=== PATIENT | female | born 1990 | race Caucasian/White ===

== ENCOUNTER 2021-02-13 15:17 | Emergency (ER) | payer OTHER, SELFPAY ==
[2021-02-13 15:26] VITALS: BP 121/73; PULSE 97; RESP 20; TEMP 37.1; O2SAT 100
--- NOTE | 2021-02-13 16:37 | DI.RAD.S_ITS ---
PROCEDURE: XR LUMBAR SPINE 2-3V INDICATIONS: back pain after yard work TECHNIQUE: 3 views of the lumbar spine were acquired. COMPARISON: None. FINDINGS: Bones: 5 [id number] vertebrae are present. No vertebral body compression fractures. No suspicious bony lesions. Mild dextroconvex scoliotic curvature is seen. Mild disc space narrowing is seen at L5-S1. The disc heights otherwise appear well-preserved. Soft tissues: Overlying bowel gas pattern is normal. No suspicious soft tissue calcifications. An IUD is seen at its expected location. IMPRESSION: Mild focal L5-S1 disc space narrowing. Mild dextroconvex scoliotic curvature. Dictated by: Glen Lagunas M.D. on 02/13/2021 at 16:25 Approved by: Glen Lagunas M.D. on 02/13/2021 at 16:26
== END 2021-02-13 20:20 | disposition left against medical advice (07) ==
PROVIDERS: Emergency Provider Emergency Medicine
DX: M54.9 Dorsalgia, unspecified (principal)
CPT/HCPCS: 72100; 99283

== ENCOUNTER 2023-12-08 23:08 | Emergency (ER) | payer OTHER, SELFPAY ==
[2023-12-08 23:13] VITALS: PULSE 109; O2SAT 100
--- NOTE | 2023-12-08 23:14 | DI.RAD.S_ITS ---
PROCEDURE: XR CHEST 1V INDICATIONS: chest pain TECHNIQUE: One view of the chest was acquired. COMPARISON: None. FINDINGS: Surgical changes and devices: None. Lungs and pleura: Lungs are clear. No pleural effusions or pneumothorax. Mediastinum: Mediastinal contours appear normal. Heart size is normal. Bones and chest wall: No suspicious bony lesions. Overlying soft tissues appear unremarkable. IMPRESSION: No acute cardiopulmonary abnormality is seen. Dictated by: Hong Chowdhury M.D. on 12/09/2023 at 0:17 Approved by: Hong Chowdhury M.D. on 12/09/2023 at 0:17
[2023-12-08 23:15] VITALS: BP 164/105; PULSE 106; RESP 20; TEMP 37; O2SAT 98; BMI 34.3
[2023-12-08 23:30] VITALS: PULSE 89; RESP 13
[2023-12-08 23:38] VITALS: BP 139/83; PULSE 85; RESP 19
[2023-12-09] VITALS: BP 146/70; PULSE 84; RESP 16; O2SAT 96
--- NOTE | 2023-12-09 00:01 | ED.CHESTPAIN ---
HPI - Chest Pain General Chief Complaint: Chest Pain Stated Complaint: chest pain Time Seen by Provider: 12/08/23 23:14 Source: patient Mode of arrival: Ambulatory Limitations: no limitations History of Present Illness HPI narrative: Patient is a 33-year-old female who is here for evaluation central chest pressure and epigastric abdominal pain. States the symptoms been going on for the past 24 hours or so. She also reports she was getting some shortness of breath when she is up around. Pain is not necessarily worse with coughing. Worse with palpation or movement. Has never had symptoms like this in the past. No worse with the eating. Has not tried anything for the symptoms prior to denies fevers. Father had heart attack when he was 55. No change in bowel habits or urinary symptoms. Related Data Allergies Allergy/AdvReac Type Severity Reaction Status Date / Time No Known Drug Allergies Allergy Verified 12/08/23 23:15 Review of Systems Review of Systems Narrative: See HPI Patient History Social History Smoking Status: Current every day smoker Smoking Status: Current every day smoker tobacco type: vaping alcohol intake frequency: a few times a week Substance Use Type: does not use Exam Initial Vital Signs Initial Vital Signs: Vital Signs Pulse Rate 109 H 12/08/23 23:13 Pulse Oximetry 100 12/08/23 23:13 Const General: cooperative, comfortable and No ill appearing HENMI Head: normal to inspection and normocephalic Resp Effort & Inspection: normal respiratory effort Auscultation: clear to auscultation bilaterally Cardio Rate: regular rate Rhythm: regular rhythm GI Inspection: normal to inspection and non-distended Skin General: no rashes or lesions noted Neuro General: patient alert, patient awake and moves all extremities Extrem General: normal to inspection and capillary refill normal Course Orders Ordered: ED Orders 12/08/23 23:14 XR chest 1V Stat EKG-12 Lead Stat 12/09/23 00:01 Complete Blood Count AUTO DIFF Stat Comprehensive Metabolic Panel Stat Lipase Stat Troponin & CK Cardiac Panel Stat Vital Signs Vital signs: Vital Signs - 8 hr 12/08/23 23:13 12/08/23 23:15 12/08/23 23:30 Temperature 98.6 F Pulse Rate 109 H 106 H 89 Respiratory Rate 20 13 Blood Pressure 164/105 H Pulse Oximetry 100 98 Oxygen Delivery Method Room Air 12/08/23 23:38 12/08/23 23:38 12/09/23 00:00 Temperature Pulse Rate 85 84 Respiratory Rate 19 16 Blood Pressure 139/83 Pulse Oximetry 96 Oxygen Delivery Method 12/09/23 00:00 12/09/23 00:30 12/09/23 00:30 Temperature Pulse Rate 73 Respiratory Rate 12 Blood Pressure 146/70 H 129/81 Pulse Oximetry 97 Oxygen Delivery Method MDM - Chest Pain Lab Data Attestation: I reviewed the patient's lab results. 12/08/23 23:35 12/08/23 23:35 Labs: Lab Results 12/08/23 Range/Units 23:35 WBC 8.8 (4.5-11.0) X10^3/uL RBC 4.69 (4.0-5.2) X10^6/uL Hgb 14.4 (12.0-16.0) g/dL Hct 42.4 (36-46) % MCV 90.3 (80-100) fL MCH 30.7 (26-34) PG MCHC 34.0 (30-36) % RDW 12.9 (11.6-14.8) % Plt Count 344 (150-400) X10^3/uL Neut % (Auto) 57.0 (50-75) % Lymph % (Auto) 33.9 (25-40) % [place] % (Auto) 6.4 (3-14) % Eos % (Auto) 2.2 (2-4) % Baso % (Auto) 0.5 (0-2) % Neut # (Auto) 5000 (2673-4039) /uL Lymph # (Auto) 3000 (0740-5527) /uL [place] # (Auto) 600 (0-900) /uL Eos # (Auto) 200 (0-450) /uL Baso # (Auto) 0 (0-100) /uL Sodium 134 L (137-145) mmol/L Potassium 3.9 (3.4-5.1) mmol/L Chloride 101 (98-107) mmol/L Carbon Dioxide 23 (22-32) mmol/L BUN 17 (7-17) mg/dL Creatinine 0.61 (0.52-1.04) mg/dL Estimated GFR > 60 (>60) mL/min BUN/Creatinine Ratio 27.9 H (6-22) Glucose 85 (70-100) mg/dL Calcium 9.4 (8.4-10.2) mg/dL Total Bilirubin 1.0 (0.2-1.3) mg/dL AST 84 H (14-36) IU/L ALT 82 H (<35) IU/L Alkaline Phosphatase 76 (38-126) U/L Total Creatine Kinase 80 (30-135) U/L Troponin I < 0.012 (0.01-0.034) ng/mL Total Protein 8.1 (6.3-8.2) g/dL Albumin 4.6 (3.5-5.0) g/dL Globulin 3.5 (1.7-4.1) g/dL Albumin/Globulin Ratio 1.3 (1.0-2.8) Lipase 108 (23-300) U/L Imaging Data Chest x-ray: Radiologist's Impression: PROCEDURE: XR CHEST 1V INDICATIONS: chest pain TECHNIQUE: One view of the chest was acquired. COMPARISON: None. FINDINGS: Surgical changes and devices: None. Lungs and pleura: Lungs are clear. No pleural effusions or pneumothorax. Mediastinum: Mediastinal contours appear normal. Heart size is normal. Bones and chest wall: No suspicious bony lesions. Overlying soft tissues appear unremarkable. IMPRESSION: No acute cardiopulmonary abnormality is seen. ECG Data Attestation: I personally reviewed and interpreted this ECG as follows: Interpretation: Sinus rhythm Ventricular rate 87 Normal [place] Normal QRS Normal QTC Artifact noted V4 V5 V6 No ST T wave changes MDM Narrative Medical decision making narrative: Patient is low risk per the revised [place] score for pulmonary embolism. Low risk for ACS. Nonischemic EKG. Negative troponin greater than 24 hours after the onset of symptoms. Chest x-ray shows no signs of pneumonia. LFTs and lipase unremarkable. Low suspicion for gallbladder pathology. I discussed all this with the patient. Despite her father having heart attack the age of 55 she still remains low risk. We did discuss the lack of a definitive etiology. Will have her try a antacid see if this helps her discomfort. Also advised she contact her primary care doctor for follow-up. She expressed understanding and agreement. She was given return precautions. Discharge Plan Departure Patient Disposition: Home Clinical Impression: Atypical chest pain Instructions: DI for Atypical Chest Pain Activity Restrictions/Additional Instructions: I do recommend that you consider taking a antacid to see if this helps the discomfort that you were having. Continue all of your medications as directed. Return to the emergency department for new or worsening symptoms. Contact your primary care doctor for follow-up. Referrals: Provider,Em AGUIRRE [Primary Care Provider] - Stand Alone Forms: Patient Portal/API
[2023-12-09 00:13] LABS: Add Manual Diff / Slide Review NO; Basophils Absolute Auto 0 /uL (0-100); Basophils Percent Auto 0.5 % (0-2); Eosinophils Absolute Auto 200 /uL (0-450); Eosinophils Percent Auto 2.2 % (2-4); Hematocrit 42.4 % (36-46); Hemoglobin 14.4 g/dL (12.0-16.0); Lymphocytes Absolute Auto 3000 /uL (1100-4500); Lymphocytes Percent Auto 33.9 % (25-40); Mean Corpuscular Hemoglobin 30.7 PG (26-34); Mean Corpuscular Volume 90.3 fL (80-100); Monocytes Absolute Auto 600 /uL (0-900); Monocytes Percent Auto 6.4 % (3-14); Neutrophils Absolute Auto 5000 /uL (1500-7000); Platelet Count 344 X10^3/uL (150-400); Red Blood Cell Count 4.69 X10^6/uL (4.0-5.2); Red Cell Distribution Width 12.9 % (11.6-14.8); White Blood Cell Count 8.8 X10^3/uL (4.5-11.0)
[2023-12-09 00:18] LABS: Alanine Aminotransferase 82 IU/L (<35); Albumin 4.6 g/dL (3.5-5.0); Albumin Globulin Ratio 1.3 (1.0-2.8); Alkaline Phosphatase 76 U/L (38-126); Aspartate Aminotransferase 84 IU/L (14-36); BUN Creatinine Ratio 27.9 (6-22); Blood Urea Nitrogen 17 mg/dL (7-17); Calcium 9.4 mg/dL (8.4-10.2); Carbon Dioxide 23 mmol/L (22-32); Chloride 101 mmol/L (98-107); Creatine Kinase 80 U/L (30-135); Estimated Glomerular Filt Rate > 60 mL/min (>60); Globulin 3.5 g/dL (1.7-4.1); Glucose 85 mg/dL (70-100); Lipase 108 U/L (23-300); Potassium 3.9 mmol/L (3.4-5.1); Sodium 134 mmol/L (137-145); Total Protein 8.1 g/dL (6.3-8.2)
[2023-12-09 00:21] LABS: HEMOLYSIS 57 (0-50)
[2023-12-09 00:30] VITALS: BP 129/81; PULSE 73; RESP 12; O2SAT 97
[2023-12-09 00:30] LABS: Troponin I < 0.012 ng/mL (0.01-0.034)
== END 2023-12-09 00:56 | disposition home or self-care (01) ==
PROVIDERS: Emergency Provider Emergency Medicine
DX: R07.89 Other chest pain (principal); R06.02 Shortness of breath
CPT/HCPCS: 71045; 80053; 82550; 83690; 84484; 85025; 93005; 99283; 99284

== ENCOUNTER 2025-07-14 07:34 | Emergency (ER) | payer OTHER, SELFPAY ==
[2025-07-14 07:40] VITALS: BP 133/86; PULSE 95; RESP 18; TEMP 36.9; O2SAT 97; BMI 34.3
--- NOTE | 2025-07-14 07:54 | DI.RAD.S_ITS ---
PROCEDURE: XR ANKLE RT MIN 3V INDICATIONS: ankle injury TECHNIQUE: 3 views of the ankle were acquired. COMPARISON: None. FINDINGS: Bones: No fractures or dislocations. Ankle mortise is normally aligned. No suspicious bony lesions. Soft tissues: No tibiotalar joint effusion. Achilles tendon appears normal. IMPRESSION: No acute bony abnormality or significant effusion. Dictated by: Rajat Lopez M.D. on 07/14/2025 at 8:25 Approved by: Rajat Lopez M.D. on 07/14/2025 at 8:25
--- NOTE | 2025-07-14 08:19 | ED.LOWEXIN ---
HPI - Extremity Injury (Lower) General Chief Complaint: Extremity Injury, Lower Stated Complaint: Right Achilles Pain x 1 day Time Seen by Provider: 07/14/25 08:13 Source: patient Mode of arrival: Wheelchair History of Present Illness HPI Narrative: Patient brought here by co-worker for right Achilles pain. Patient states she was in the shower and stepped wrong and felt pain in her Achilles tendon at the insertion to the heel. Has pain with weight-bearing. No previous injury to this area. Foot and Ankle exposed on the right. Related Data Allergies Allergy/AdvReac Type Severity Reaction Status Date / Time No Known Drug Allergies Allergy Verified 07/14/25 07:41 Review of Systems Review of Systems Narrative: GENERAL: Negative chills, fatigue, malaise, fever, sweats. HEENT: Negative sinus pain, ear pain, sore throat RESPIRATORY: Negative dyspnea, cough CARDIOVASCULAR: Negative chest pain, palpitations GASTROINTESTINAL: Negative vomiting, nausea, abdominal pain : Negative dysuria, frequency, hematuria MUSCULOSKELETAL: Positive muscle or bony pain SKIN: Negative rash, skin lesions NEUROLOGIC: Negative weakness, numbness ROS Unobtainable: All systems reviewed & are unremarkable except as noted in HPI and below Patient History tobacco type: vaping alcohol intake frequency: a few times a week Exam Narrative Exam Narrative: GENERAL: in no distress, not toxic not dyspneic HEAD: Normocephalic. EYES: Pupils equal round EXTREMITIES: No gross deformities. Examination right lower extremity, tenderness to the Achilles tendon without bruising or swelling. Shields test is intact. Foot is warm soft pink brisk cap refills strong pedal pulse able to wiggle toes. Able to lift leg and foot off the ground, no foot drop. Pain with attempts to dorsiflex. Achilles tendon is palpable at the calcaneus. NEURO: AOx4. Clear speech SKIN: Warm and dry PSYCH: Not anxious, is cooperative Initial Vital Signs Initial Vital Signs: Vital Signs Temperature 98.5 F 07/14/25 07:40 Pulse Rate 95 H 07/14/25 07:40 Respiratory Rate 18 07/14/25 07:40 Blood Pressure 133/86 07/14/25 07:40 Pulse Oximetry 97 07/14/25 07:40 Oxygen Delivery Method Room Air 07/14/25 07:40 Procedures Orthopedic Splinting/Casting Injury #1: Time of procedure: 09:41 Side: right Lower Extremity Injury Location: ankle Lower Extremity Immobilizer: posterior splint Other Orthopedic Equipment: crutches Post splinting neuro exam: intact and no change Post splinting vascular exam: no change Placed by: Nursing Course Orders Ordered: ED Orders 07/14/25 07:54 XR ankle RT min 3V Stat 07/14/25 09:43 Consult to Orthopedic Surgery Stat Vital Signs Vital signs: Vital Signs - 8 hr 07/14/25 07:40 07/14/25 09:49 Temperature 98.5 F Pulse Rate 95 H 88 Respiratory Rate 18 16 Blood Pressure 133/86 125/76 Pulse Oximetry 97 98 Oxygen Delivery Method Room Air Room Air MDM - Extremity Injury (Lower) Imaging Data Extremity x-ray #1: Radiologist's Impression: [address] [id number] XRay Report Signed Patient: Shanon Grigsby MR#: [id number] : 1990 Acct:[id number] Age/Sex: 35 / F Date of Service: 07/14/25 Loc: ED Accession Number: [id number] Procedure: XR ankle RT min 3V Ordering Provider: Geovani Hammonds MD PROCEDURE: XR ANKLE RT MIN 3V INDICATIONS: ankle injury TECHNIQUE: 3 views of the ankle were acquired. COMPARISON: None. FINDINGS: Bones: No fractures or dislocations. Ankle mortise is normally aligned. No suspicious bony lesions. Soft tissues: No tibiotalar joint effusion. Achilles tendon appears normal. IMPRESSION: No acute bony abnormality or significant effusion. Dictated by: Rajat Lopez M.D. on 07/14/2025 at 8:25 Approved by: Rajat Lopez M.D. on 07/14/2025 at 8:25 [facility] Narrative Medical decision making narrative: Patient brought here by co-worker for right Achilles pain. Patient states she was in the shower and stepped wrong and felt pain in her Achilles tendon at the insertion to the heel. Has pain with weight-bearing. No previous injury to this area. Foot and Ankle exposed on the right. MDM After history and exam, x-ray right ankle. Differential considered: Includes but not limited to Achilles tear strain Medical records reviewed: No recent visit for this complaint Imaging studies independently reviewed: X-ray ankle no acute finding Consultations: 9:40 a.m.. Attempted calls to Orthopedics but no call back. Started paging an hour ago. Re-evaluations: 9:40 a.m.. Patient tolerated splinting very well. Pain is much better controlled. Reviewed orthopedic referral provided she desires discharge home. Discussion: Appropriate for discharge home. Foot and ankle neurovascularly intact pain controlled. Referral for Orthopedics provided. Work note provided. She desires discharge home. Diagnosis: Strain Achilles Discharge Plan Departure Patient Disposition: Home Clinical Impression: Strain of left Achilles tendon, initial encounter Instructions: DI for Achilles Tendon Rupture Activity Restrictions/Additional Instructions: It is possible you injured your Achilles tendon. Splint has been applied to protect your tendon. Please use crutches when ambulating. Elevate foot and ankle when at rest. May continue ibuprofen and Tylenol for pain. Please call provided orthopedic office today for follow up appointment. You may need further imaging through the office. Work note has been provided for you. Return if worse if any questions or concerns Referrals: Saúl Suero MD [Physician, Orthopedic Surgery] Stand Alone Forms: Patient Portal/API, Work Release Note
[2025-07-14 09:49] VITALS: BP 125/76; PULSE 88; RESP 16; O2SAT 98
== END 2025-07-14 09:46 | disposition home or self-care (01) ==
PROVIDERS: Emergency Provider Emergency Medicine
DX: S86.011A Strain of right Achilles tendon, initial encounter (principal); X50.1XXA Overexertion from prolonged static or awkward postures, initial encounter
CPT/HCPCS: 29515; 73610; 99283